=== PATIENT | male | born 1995 | race Caucasian/White ===

== ENCOUNTER → 2018-05-30 | Outpatient (CLI) | payer SELFPAY ==
[2018-05-30 14:51] LABS: EOS # 0.1 (0.04-0.40); EOS % 0.8 % (0.0-4.0); HEMATOCRIT 45.8 % (42.0-52.0); HEMOGLOBIN 16.1 g/dL (13.5-18.0); LYMPH# 2.6 (1.50-4.00); MEAN CELL VOLUME 82 fl (78-100); MEAN CORPUSCULAR HEMOGLOBIN 29 pg (27-31); MEAN CORPUSCULAR HGB CONC 35 g/dL (33-37); MONO # 0.6 (0.20-0.80); NEU # 5.4 (1.40-6.50); PLATELET COUNT 314 K/mm3 (130-400); RED BLOOD COUNT 5.58 M/mm3 (4.20-5.60); RED CELL DISTRIBUTION WIDTH 13.1 % (11.5-14.5); WHITE BLOOD COUNT 8.7 K/mm3 (4.8-10.8)
[2018-05-30 14:59] LABS: ALBUMIN 5.1 g/dL (3.5-5.0); CALCIUM 9.9 mg/dL (8.4-10.2); POTASSIUM 4.2 mmol/L (3.6-5.0); TOTAL BILIRUBIN 1.3 mg/dL (0.2-1.3); TOTAL PROTEIN 8.1 g/dL (6.3-8.2)
[2018-05-30 16:08] LABS: ERYTHROCYTE SEDIMENTATION RATE 1 mm/hr (0-15)
== END ==
LOC: LAB 14:30
PROVIDERS: Nurse Practitioner
DX: R22.42 Localized swelling, mass and lump, left lower limb (principal); M25.522 Pain in left elbow

== ENCOUNTER → 2022-03-31 | Outpatient (CLI) | payer OTHER | LOC: RAD 12:37 | DX: S62.663A Nondisplaced fracture of distal phalanx of left middle finger, initial encounter for closed fracture (principal); X58.XXXA Exposure to other specified factors, initial encounter ==

== ENCOUNTER → 2022-04-01 | Outpatient (CLI) | payer OTHER ==
[~2022-04-01] VITALS: Ht 185.4 cm; Wt 108.0 kg
[2022-04-01 16:08] VITALS: BP 149/84
== END ==
LOC: AMSURD 15:31
DX: S62.633B Displaced fracture of distal phalanx of left middle finger, initial encounter for open fracture (principal)
CPT/HCPCS: J1580